=== PATIENT | female | born 1945 | race Asian ===

== ENCOUNTER 2017-01-12 16:20 | Emergency (ER) | payer OTHER ==
[~2017-01-12 16:20] MED LIST: ALEN70TA48 PO; AMLO-511 PO; ASPI-1146 PO; ATOR40TA71 PO; CALC-1009 PO; DULO60CA44 PO; FURO20 PO; GLIP5TAB11 PO; METF500T4 PO; METO100XL PO; QUET100T PO; SITA50 PO
[2017-01-13] MEDS ORDERED: DULO30CA2 PO (11:30)
[2017-01-13] MEDS ORDERED: ASPI81 PO (11:30)
== END 2017-01-12 21:24 | disposition left against medical advice (07) ==
LOC: EMS 16:20
DX: R07.9 Chest pain, unspecified (principal); Z53.21 Procedure and treatment not carried out due to patient leaving prior to being seen by health care provider
CPT/HCPCS: 93005

== ENCOUNTER 2017-01-13 11:17 | Emergency (ER) | payer OTHER ==
[~2017-01-13] VITALS: Ht 142.2 cm; Wt 52.3 kg
[2017-01-13] MEDS ORDERED: ASPI81 PO (11:30)
[2017-01-13] MEDS ORDERED: DULO30CA2 PO (11:30)
[2017-01-13 11:42] LABS: GLUCOSE,POINT OF CARE 244 MG/DL (70-110)
[2017-01-13 12:35] LABS: BASOPHILS # (AUTO) 0.03 K/uL (0.00-0.20); BASOPHILS % (AUTO) 0.5 % (0.0-2.0); EOSINOPHILS # (AUTO) 0.31 K/uL (0.00-0.70); EOSINOPHILS % (AUTO) 5.95 % (1.0-6.0); HEMATOCRIT 37.9 % (36-46); HEMOGLOBIN 12.4 g/dL (12.0-16.0); LYMPHOCYTES # (AUTO) 1.5 K/uL (1.0-4.8); LYMPHOCYTES % (AUTO) 28.8 % (22.0-44.0); MEAN CORPUSCULAR HEMOGLOBIN 30.2 pg (26.0-34.0); MEAN CORPUSCULAR HGB CONC 32.8 G/dL (31.0-37.0); MEAN CORPUSCULAR VOLUME 92 fL (80-100); MONOCYTES # (AUTO) 0.4 K/uL (0.1-1.0); MONOCYTES % (AUTO) 7.8 % (2.0-9.0); PLATELET COUNT (AUTO) 437 K/uL (150-450); RED BLOOD CELL COUNT(AUTO) 4.11 MIL/uL (4.00-5.20); RED CELL DISTRIBUTION WIDTH 13.4 % (11.5-14.5); WHITE BLOOD COUNT (AUTO) 5.2 K/uL (4.5-11.0)
[2017-01-13 12:46] LABS: CALCIUM, TOTAL 9.4 mg/dL (8.8-10.5); CREATININE 1.43 mg/dL (0.60-1.30); POTASSIUM 4.5 mmol/L (3.5-5.1)
[2017-01-13 12:55] LABS: BILIRUBIN,TOTAL 0.4 mg/dL (0.1-1.0); TOTAL PROTEIN, SERUM 8.4 g/dL (6.4-8.2)
[2017-01-13] MEDS ORDERED: DONNATAL/LIDOCAINE/MAALOX 55 ML BOTTLE PO ONE (13:15)
[2017-01-13 15:16] VITALS: BP 125/85
== END 2017-01-13 15:17 | disposition home or self-care (01) ==
LOC: EMS 11:20
DX: R07.89 Other chest pain (principal); I10 Essential (primary) hypertension; E11.9 Type 2 diabetes mellitus without complications; E78.00 Pure hypercholesterolemia, unspecified
CPT/HCPCS: 82962; 93005; 99285

== ENCOUNTER 2017-07-04 15:02 | Emergency (ER) | payer OTHER ==
[~2017-07-04] VITALS: Ht 142.2 cm; Wt 57.0 kg
[~2017-07-04 15:02] MED LIST changes: -ALEN70TA48 PO; -ASPI-1146 PO; +ASPI81 PO; +DULO30CA2 PO; -FURO20 PO
[2017-07-04] MEDS ORDERED: DiphenhydrAMINE HCL 25 MG/10 ML ELIXIR UDCUP PO ONE (17:15)
[2017-07-04 17:47] VITALS: BP 110/66
== END 2017-07-04 17:48 | disposition home or self-care (01) ==
LOC: EMS 15:03
DX: R21 Rash and other nonspecific skin eruption (principal); L29.9 Pruritus, unspecified; M79.646 Pain in unspecified finger(s); M25.552 Pain in left hip; E11.9 Type 2 diabetes mellitus without complications; E78.00 Pure hypercholesterolemia, unspecified; I10 Essential (primary) hypertension; Z87.442 Personal history of urinary calculi; Z90.13 Acquired absence of bilateral breasts and nipples; Z79.82 Long term (current) use of aspirin; Z79.899 Other long term (current) drug therapy
CPT/HCPCS: 82962; 99282

== ENCOUNTER 2017-07-21 09:33 | Emergency (ER) | payer OTHER ==
[~2017-07-21] VITALS: Ht 144.8 cm; Wt 57.2 kg
[2017-07-21 10:37] LABS: GLUCOSE,POINT OF CARE 239 MG/DL (70-110)
[2017-07-21 11:15] VITALS: BP 114/70
== END 2017-07-21 12:14 | disposition home or self-care (01) ==
LOC: EMS 09:46
DX: M25.552 Pain in left hip (principal); M16.0 Bilateral primary osteoarthritis of hip; R79.89 Other specified abnormal findings of blood chemistry; E78.00 Pure hypercholesterolemia, unspecified; E11.9 Type 2 diabetes mellitus without complications; F32.9 Major depressive disorder, single episode, unspecified; G62.9 Polyneuropathy, unspecified; G89.29 Other chronic pain; I10 Essential (primary) hypertension; Z79.82 Long term (current) use of aspirin; Z87.442 Personal history of urinary calculi; Z90.13 Acquired absence of bilateral breasts and nipples
CPT/HCPCS: 73503; 82962; 99284

== ENCOUNTER 2018-02-04 17:30 | Emergency (ER) | payer OTHER, MEDICAID ==
[~2018-02-04] VITALS: Ht 142.2 cm; Wt 56.8 kg
[2018-02-04 18:13] LABS: GLUCOSE,POINT OF CARE 238 MG/DL (70-110)
[2018-02-04] MEDS ORDERED: HydrOXYzine PAMOATE 50 MG CAPSULE PO ONE (18:15)
[2018-02-04 19:31] VITALS: BP 118/75
== END 2018-02-04 19:40 | disposition home or self-care (01) ==
LOC: EDUNIT# 17:30 → EMS 17:31
DX: F41.9 Anxiety disorder, unspecified (principal); F32.9 Major depressive disorder, single episode, unspecified; G47.00 Insomnia, unspecified; I10 Essential (primary) hypertension; E11.9 Type 2 diabetes mellitus without complications; E78.00 Pure hypercholesterolemia, unspecified
CPT/HCPCS: 82962; 99284

== ENCOUNTER 2018-04-06 15:48 | Emergency (ER) | payer OTHER, MEDICAID ==
[~2018-04-06] VITALS: Ht 142.2 cm; Wt 56.8 kg
[~2018-04-06 15:48] MED LIST changes: -METF500T4 PO; +METF500T6 PO
[2018-04-06 16:04] VITALS: BP 143/79
[2018-04-06 16:12] LABS: GLUCOSE,POINT OF CARE 237 MG/DL (70-110)
== END 2018-04-06 17:00 | disposition home or self-care (01) ==
LOC: EMS 15:49
DX: L30.9 Dermatitis, unspecified (principal); F32.9 Major depressive disorder, single episode, unspecified; E11.9 Type 2 diabetes mellitus without complications; E78.00 Pure hypercholesterolemia, unspecified; I10 Essential (primary) hypertension; Z79.82 Long term (current) use of aspirin; Z79.4 Long term (current) use of insulin; Z87.442 Personal history of urinary calculi; Z98.890 Other specified postprocedural states; Z79.899 Other long term (current) drug therapy
CPT/HCPCS: 99283

== ENCOUNTER 2019-02-11 14:19 | Emergency (ER) | payer OTHER ==
[~2019-02-11] VITALS: Ht 149.9 cm; Wt 56.8 kg
[~2019-02-11 14:19] MED LIST changes: -DULO30CA2 PO; +METF-960 PO; -METF500T6 PO
[2019-02-11 14:49] LABS: GLUCOSE,POINT OF CARE 148 MG/DL (70-110)
[2019-02-11] MEDS ORDERED: FURO20 PO (15:00)
[2019-02-11 18:05] VITALS: BP 133/81
== END 2019-02-11 18:24 | disposition home or self-care (01) ==
LOC: EMS 14:19
DX: M16.12 Unilateral primary osteoarthritis, left hip (principal); M79.652 Pain in left thigh; E11.9 Type 2 diabetes mellitus without complications; I10 Essential (primary) hypertension; E78.00 Pure hypercholesterolemia, unspecified; F32.9 Major depressive disorder, single episode, unspecified; Z90.13 Acquired absence of bilateral breasts and nipples; Z79.899 Other long term (current) drug therapy; Z79.82 Long term (current) use of aspirin; Z79.84 Long term (current) use of oral hypoglycemic drugs
CPT/HCPCS: 73503; 73552

== ENCOUNTER 2019-03-02 17:17 | Emergency (ER) | payer MEDICARE, MEDICAID ==
[~2019-03-02] VITALS: Ht 149.9 cm; Wt 56.8 kg
[~2019-03-02 17:17] MED LIST changes: +FURO20 PO
[2019-03-02 17:33] VITALS: BP 144/70
[2019-03-02] MEDS ORDERED: GLIP10 PO (17:40)
[2019-03-02 17:44] LABS: GLUCOSE,POINT OF CARE 232 MG/DL (70-110)
[2019-03-02 17:50] LABS: BASOPHILS % (AUTO) 0.7 % (0.0-2.0); EOSINOPHILS % (AUTO) 1.6 % (1.0-6.0); HEMATOCRIT 35.5 % (36-46); HEMOGLOBIN 11.8 g/dL (12.0-16.0); LYMPHOCYTES # (AUTO) 1.3 K/uL (1.0-4.8); LYMPHOCYTES % (AUTO) 16.3 % (22.0-44.0); MEAN CORPUSCULAR HEMOGLOBIN 30.3 pg (26.0-34.0); MEAN CORPUSCULAR HGB CONC 33.2 G/dL (31.0-37.0); MEAN CORPUSCULAR VOLUME 91 fL (80-100); MONOCYTES % (AUTO) 12.5 % (2.0-9.0); NEUTROPHILS # (AUTO) 5.6 K/uL (1.8-7.7); NEUTROPHILS % (AUTO) 68.9 % (40.0-70.0); PLATELET COUNT (AUTO) 436 K/uL (150-450); RED BLOOD CELL COUNT(AUTO) 3.89 MIL/uL (4.00-5.20); RED CELL DISTRIBUTION WIDTH 13.3 % (11.5-14.5)
[2019-03-02 18:11] LABS: CALCIUM, TOTAL 9.4 mg/dL (8.8-10.5); CREATININE 1.34 mg/dL (0.60-1.30); POTASSIUM 3.5 mmol/L (3.5-5.1)
[2019-03-02 18:17] LABS: ALBUMIN 3.9 g/dL (3.4-5.0); BILIRUBIN,TOTAL 0.3 mg/dL (0.1-1.0); TOTAL PROTEIN, SERUM 8.7 g/dL (6.4-8.2)
[2019-03-02] MEDS ORDERED: BENZONATATE 100 MG CAPSULE PO ONE (18:45)
[2019-03-02] MEDS ORDERED: AZITHROMYCIN 250 MG TABLET PO ONE (18:45)
== END 2019-03-02 19:09 | disposition home or self-care (01) ==
LOC: EMS 17:18
DX: J40 Bronchitis, not specified as acute or chronic (principal); I10 Essential (primary) hypertension; E78.00 Pure hypercholesterolemia, unspecified; E11.9 Type 2 diabetes mellitus without complications; F32.9 Major depressive disorder, single episode, unspecified; Z79.82 Long term (current) use of aspirin; Z79.84 Long term (current) use of oral hypoglycemic drugs; Z79.899 Other long term (current) drug therapy
CPT/HCPCS: 93005

== ENCOUNTER 2019-04-10 10:04 | Emergency (ER) | payer MEDICARE, MEDICAID ==
[~2019-04-10] VITALS: Ht 154.9 cm; Wt 61.4 kg
[~2019-04-10 10:04] MED LIST changes: +GLIP10 PO; -GLIP5TAB11 PO
[2019-04-10 11:05] LABS: GLUCOSE,POINT OF CARE 142 MG/DL (70-110)
[2019-04-10 11:06] VITALS: BP 122/61
== END 2019-04-10 11:09 | disposition home or self-care (01) ==
LOC: EMS 10:07
DX: R21 Rash and other nonspecific skin eruption (principal); E11.9 Type 2 diabetes mellitus without complications; I10 Essential (primary) hypertension; E78.00 Pure hypercholesterolemia, unspecified; F32.9 Major depressive disorder, single episode, unspecified; Z79.82 Long term (current) use of aspirin; Z79.84 Long term (current) use of oral hypoglycemic drugs; Z79.899 Other long term (current) drug therapy

== ENCOUNTER 2019-04-20 15:30 | Emergency (ER) | payer MEDICARE, MEDICAID ==
[~2019-04-20] VITALS: Ht 160 cm; Wt 63.6 kg
[2019-04-20 15:59] LABS: GLUCOSE,POINT OF CARE 178 MG/DL (70-110)
[2019-04-20 16:46] VITALS: BP 124/71
== END 2019-04-20 16:53 | disposition home or self-care (01) ==
LOC: EMS 15:30
DX: L29.8 Other pruritus (principal); E11.9 Type 2 diabetes mellitus without complications; E78.00 Pure hypercholesterolemia, unspecified; I10 Essential (primary) hypertension; Z79.84 Long term (current) use of oral hypoglycemic drugs; Z79.899 Other long term (current) drug therapy

== ENCOUNTER 2019-09-10 18:02 | Emergency (ER) | payer OTHER ==
[~2019-09-10] VITALS: Ht 142.2 cm; Wt 55.9 kg
[~2019-09-10 18:02] MED LIST changes: -AMLO-511 PO; +AMLO5TAB9 PO
[2019-09-10 18:23] LABS: GLUCOSE,POINT OF CARE 191 MG/DL (70-110)
[2019-09-10] MEDS ORDERED: ACETAMINOPHEN/CODEINE 300-30 MG TABLET PO ONE (20:45)
[2019-09-10 22:30] VITALS: BP 116/78
== END 2019-09-11 | disposition home or self-care (01) ==
LOC: EMS 18:03
DX: M25.552 Pain in left hip (principal); E11.40 Type 2 diabetes mellitus with diabetic neuropathy, unspecified; E78.00 Pure hypercholesterolemia, unspecified; I10 Essential (primary) hypertension; F32.9 Major depressive disorder, single episode, unspecified; Z79.899 Other long term (current) drug therapy
CPT/HCPCS: 73503

== ENCOUNTER 2020-06-09 04:54 | Emergency (ER) | payer OTHER ==
[~2020-06-09] VITALS: Ht 142.2 cm; Wt 55.9 kg
[~2020-06-09 04:54] MED LIST changes: +AMLO-257 PO; -AMLO5TAB9 PO; +ASPI-728 PO; -ASPI81 PO; +DULO-8 PO; -DULO60CA44 PO
[2020-06-09] MEDS ORDERED: SODIUM CHLORIDE 0.9% 1,000 ML IV ONE (05:45)
[2020-06-09 05:58] LABS: BASOPHILS % (AUTO) 0.4 % (0.0-2.0); EOSINOPHILS % (AUTO) 0.8 % (1.0-6.0); HEMATOCRIT 32.2 % (36-46); HEMOGLOBIN 10.7 g/dL (12.0-16.0); LYMPHOCYTES # (AUTO) 0.8 K/uL (1.0-4.8); LYMPHOCYTES % (AUTO) 14.8 % (22.0-44.0); MEAN CORPUSCULAR HEMOGLOBIN 30.3 pg (26.0-34.0); MEAN CORPUSCULAR HGB CONC 33.2 G/dL (31.0-37.0); MEAN CORPUSCULAR VOLUME 91 fL (80-100); MONOCYTES # (AUTO) 0.8 K/uL (0.1-1.0); MONOCYTES % (AUTO) 14.7 % (2.0-9.0); NEUTROPHILS # (AUTO) 3.8 K/uL (1.8-7.7); NEUTROPHILS % (AUTO) 69.3 % (40.0-70.0); PLATELET COUNT (AUTO) 328 K/uL (150-450); RED BLOOD CELL COUNT(AUTO) 3.53 MIL/uL (4.00-5.20); RED CELL DISTRIBUTION WIDTH 13.4 % (11.5-14.5)
[2020-06-09 06:15] LABS: ALBUMIN 3.2 g/dL (3.4-5.0); BILIRUBIN,TOTAL 0.4 mg/dL (0.1-1.0); CREATININE 1.75 mg/dL (0.60-1.30); TOTAL PROTEIN, SERUM 7.4 g/dL (6.4-8.2)
[2020-06-09 07:15] VITALS: BP 111/69
[2020-06-09] MEDS ORDERED: POTASSIUM CHLORIDE 20 MEQ ER TABLET PO ONE (07:15)
== END 2020-06-09 07:30 | disposition home or self-care (01) ==
LOC: EMS 04:54
DX: I12.9 Hypertensive chronic kidney disease with stage 1 through stage 4 chronic kidney disease, or unspecified chronic kidney disease (principal); N18.9 Chronic kidney disease, unspecified; E11.22 Type 2 diabetes mellitus with diabetic chronic kidney disease; E87.6 Hypokalemia; D64.9 Anemia, unspecified; F32.9 Major depressive disorder, single episode, unspecified; E78.00 Pure hypercholesterolemia, unspecified; Z79.84 Long term (current) use of oral hypoglycemic drugs; Z79.82 Long term (current) use of aspirin; Z79.899 Other long term (current) drug therapy
CPT/HCPCS: 36415; 74019; 80053; 82962; 83690; 85025; 96360; 96361; 99284; J7030

== ENCOUNTER 2021-04-26 11:07 | Emergency (ER) | payer OTHER ==
[~2021-04-26] VITALS: Ht 149.9 cm; Wt 45.5 kg
[~2021-04-26 11:07] MED LIST changes: +ASPI-1450 PO; -ASPI-728 PO; +METO-327 PO; -METO100XL PO
[2021-04-26 11:57] VITALS: BP 124/84
== END 2021-04-26 11:59 | disposition home or self-care (01) ==
LOC: EMS 11:08
DX: F32.9 Major depressive disorder, single episode, unspecified (principal); E11.9 Type 2 diabetes mellitus without complications; E78.00 Pure hypercholesterolemia, unspecified; I10 Essential (primary) hypertension; Z76.0 Encounter for issue of repeat prescription; Z79.84 Long term (current) use of oral hypoglycemic drugs; Z79.82 Long term (current) use of aspirin; Z79.899 Other long term (current) drug therapy
CPT/HCPCS: 82962; 99281; 99282

== ENCOUNTER 2023-01-29 14:24 | Emergency (ER) | payer OTHER ==
[~2023-01-29] VITALS: Ht 142.2 cm; Wt 59.1 kg
[~2023-01-29 14:24] MED LIST changes: +DULO-113 PO; -DULO-8 PO; -GLIP10 PO; +GLIP10TA10 PO; +METF-1211 PO; -METF-960 PO
[2023-01-29] MEDS ORDERED: LISI20TA24 PO (14:32)
[2023-01-29 14:57] LABS: EOSINOPHILS % (AUTO) 10.5 % (1.0-6.0); LYMPHOCYTES % (AUTO) 26.9 % (22.0-44.0); MEAN CORPUSCULAR HEMOGLOBIN 30.3 pg (26.0-34.0); MEAN CORPUSCULAR HGB CONC 33.3 G/dL (31.0-37.0); MEAN CORPUSCULAR VOLUME 91 fL (80-100); MONOCYTES # (AUTO) 0.6 K/uL (0.1-1.0); MONOCYTES % (AUTO) 8.7 % (2.0-9.0); NEUTROPHILS # (AUTO) 3.9 K/uL (1.8-7.7); NEUTROPHILS % (AUTO) 52.9 % (40.0-70.0); PLATELET COUNT (AUTO) 372 K/uL (150-450); RED BLOOD CELL COUNT(AUTO) 3.96 MIL/uL (4.00-5.20); RED CELL DISTRIBUTION WIDTH 13.6 % (11.5-14.5)
[2023-01-29 15:12] LABS: CALCIUM, TOTAL 9.4 mg/dL (8.8-10.5); CREATININE 1.42 mg/dL (0.60-1.30); POTASSIUM 3.9 mmol/L (3.5-5.1)
[2023-01-29 15:19] LABS: ALBUMIN 4.1 g/dL (3.4-5.0); BILIRUBIN,TOTAL 0.4 mg/dL (0.1-1.0); TOTAL PROTEIN, SERUM 8.6 g/dL (6.4-8.2)
[2023-01-29 20:50] VITALS: BP 137/71
== END 2023-01-29 21:11 | disposition home or self-care (01) ==
LOC: EMS 14:34
DX: R14.0 Abdominal distension (gaseous) (principal); E11.22 Type 2 diabetes mellitus with diabetic chronic kidney disease; R60.1 Generalized edema; F32.A Depression, unspecified; E11.9 Type 2 diabetes mellitus without complications; E78.00 Pure hypercholesterolemia, unspecified; Z98.890 Other specified postprocedural states
CPT/HCPCS: 74022; 76700; 80053; 82962; 83880; 85025; 99285

== ENCOUNTER 2023-05-31 12:35 | Emergency (ER) | payer OTHER ==
[~2023-05-31] VITALS: Ht 154.9 cm; Wt 61.4 kg
[~2023-05-31 12:35] MED LIST changes: +LISI20TA24 PO
[2023-05-31 13:06] VITALS: BP 134/76; PULSE 86; RESP 18; TEMP 98.6
[2023-05-31] MEDS ORDERED: DIPH25TA20 PO (13:48)
[2023-05-31] MEDS ORDERED: PERM60CR19 TP (13:48)
== END 2023-05-31 13:53 | disposition home or self-care (01) ==
LOC: EMS 12:39
DX: L30.9 Dermatitis, unspecified (principal); F32.A Depression, unspecified; E78.00 Pure hypercholesterolemia, unspecified; I10 Essential (primary) hypertension; E11.40 Type 2 diabetes mellitus with diabetic neuropathy, unspecified; Z90.13 Acquired absence of bilateral breasts and nipples; Z98.890 Other specified postprocedural states
CPT/HCPCS: 82962; 99281; 99282

== ENCOUNTER 2023-07-01 16:23 | Emergency (ER) | payer OTHER ==
[~2023-07-01] VITALS: Ht 154.9 cm; Wt 54.5 kg
[~2023-07-01 16:23] MED LIST changes: +DIPH25TA20 PO; +PERM60CR19 TP
[2023-07-01 16:33] VITALS: TEMP 97.9
[2023-07-01 17:25] LABS: BASOPHILS % (AUTO) 1.3 % (0.0-2.0); EOSINOPHILS % (AUTO) 2.6 % (1.0-6.0); HEMATOCRIT 41.3 % (36-46); HEMOGLOBIN 13.7 g/dL (12.0-16.0); LYMPHOCYTES # (AUTO) 2.1 K/uL (1.0-4.8); LYMPHOCYTES % (AUTO) 31.2 % (22.0-44.0); MEAN CORPUSCULAR HEMOGLOBIN 30.3 pg (26.0-34.0); MEAN CORPUSCULAR HGB CONC 33.2 G/dL (31.0-37.0); MEAN CORPUSCULAR VOLUME 91 fL (80-100); MONOCYTES # (AUTO) 0.5 K/uL (0.1-1.0); MONOCYTES % (AUTO) 7.3 % (2.0-9.0); NEUTROPHILS # (AUTO) 3.9 K/uL (1.8-7.7); NEUTROPHILS % (AUTO) 57.6 % (40.0-70.0); PLATELET COUNT (AUTO) 355 K/uL (150-450); RED BLOOD CELL COUNT(AUTO) 4.53 MIL/uL (4.00-5.20); RED CELL DISTRIBUTION WIDTH 13.6 % (11.5-14.5); WHITE BLOOD COUNT (AUTO) 6.7 K/uL (4.5-11.0)
[2023-07-01 17:33] LABS: CALCIUM, TOTAL 9.2 mg/dL (8.8-10.5); CREATININE 1.3 mg/dL (0.60-1.30); POTASSIUM 3.4 mmol/L (3.5-5.1)
[2023-07-01 17:40] LABS: TROPONIN I-HIGH SENSITIVITY 7 ng/L (<51)
[2023-07-01 17:56] LABS: ALBUMIN 4.1 g/dL (3.4-5.0); BILIRUBIN,TOTAL 0.6 mg/dL (0.1-1.0); TOTAL PROTEIN, SERUM 9.1 g/dL (6.4-8.2)
[2023-07-01 17:58] LABS: COVID AG,FIA SOURCE NASOPHARYNGEAL
[2023-07-01 18:06] LABS: APPEARANCE,URINE CLEAR (CLEAR); BILIRUBIN,URINE NEGATIVE (NEGATIVE); COLOR,URINE LIGHT YELLOW (YELLOW); GLUCOSE, URINE (UA) >=1000 mg/dL (NEGATIVE); KETONES,URINE NEGATIVE (NEGATIVE); LEUKOCYTE ESTERASE ,URINE NEGATIVE (NEGATIVE); NITRATE,URINE NEGATIVE (NEGATIVE); OCCULT BLOOD,URINE NEGATIVE (NEGATIVE); PH,URINE 6.5 (5.0-8.0); PROTEIN,URINE TRACE mg/dL (NEGATIVE); SPECIFIC GRAVITIY, URINE 1.019 (1.003-1.030); UROBILINOGEN,URINE <=1.0 mg/dL (<=1.0)
[2023-07-01 18:21] LABS: BACTERIA,URINE None Seen /HPF (None Seen); RBC,URINE None Seen /HPF (0-2); WBC,URINE 0-2 /HPF (0-5)
[2023-07-01 18:23] LABS: SARS-COV2 (COVID) ANTIGEN,FIA Negative (Negative)
[2023-07-01 18:24] LABS: INFLUENZA TYPE A NEGATIVE FOR TYPE A (NEGATIVE); INFLUENZA TYPE B NEGATIVE FOR TYPE B (NEGATIVE)
[2023-07-01 19:19] VITALS: BP 182/93; PULSE 95; RESP 20
[2023-07-01 19:26] LABS: GLUCOMETER DEV NAME(LOC) ER.6; GLUCOSE,POINT OF CARE 213 MG/DL (70-110)
== END 2023-07-01 19:26 | disposition home or self-care (01) ==
LOC: EMS 16:24
DX: R53.1 Weakness (principal); R53.83 Other fatigue; F32.A Depression, unspecified; E78.00 Pure hypercholesterolemia, unspecified; I10 Essential (primary) hypertension; E11.40 Type 2 diabetes mellitus with diabetic neuropathy, unspecified; Z90.13 Acquired absence of bilateral breasts and nipples; Z20.822 Contact with and (suspected) exposure to COVID-19
CPT/HCPCS: 71045; 80053; 81001; 81003; 82550; 82962; 83880; 84484; 85025; 87804; 93005; 99285; 36415-L1; 36415-TC

== ENCOUNTER 2023-09-16 13:53 | Emergency (ER) | payer OTHER ==
[~2023-09-16] VITALS: Ht 142.2 cm; Wt 55.5 kg
[2023-09-16 14:05] VITALS: TEMP 98
[2023-09-16 14:12] VITALS: BP 140/73; PULSE 83; RESP 16
[2023-09-16] MEDS: ONDANSETRON HCL 4 MG TABLET PO ONE (15:01)
[2023-09-16] MEDS: ACETAMINOPHEN 500 MG TABLET PO ONE (15:01)
[2023-09-16] MEDS: MECLIZINE HCL 25 MG TABLET PO ONE (15:02)
[2023-09-16 15:21] LABS: BASOPHILS % (AUTO) 0.9 % (0.0-2.0); EOSINOPHILS % (AUTO) 1.9 % (1.0-6.0); HEMATOCRIT 37.2 % (36-46); HEMOGLOBIN 12.5 g/dL (12.0-16.0); LYMPHOCYTES # (AUTO) 1.8 K/uL (1.0-4.8); MEAN CORPUSCULAR HEMOGLOBIN 30.7 pg (26.0-34.0); MEAN CORPUSCULAR HGB CONC 33.6 G/dL (31.0-37.0); MEAN CORPUSCULAR VOLUME 91 fL (80-100); MONOCYTES # (AUTO) 0.4 K/uL (0.1-1.0); MONOCYTES % (AUTO) 6.5 % (2.0-9.0); NEUTROPHILS # (AUTO) 4.4 K/uL (1.8-7.7); NEUTROPHILS % (AUTO) 64.7 % (40.0-70.0); PLATELET COUNT (AUTO) 360 K/uL (150-450); RED BLOOD CELL COUNT(AUTO) 4.08 MIL/uL (4.00-5.20); WHITE BLOOD COUNT (AUTO) 6.8 K/uL (4.5-11.0)
[2023-09-16 15:39] LABS: TROPONIN I-HIGH SENSITIVITY 9 ng/L (<51)
[2023-09-16 16:15] LABS: CALCIUM, TOTAL 9.1 mg/dL (8.8-10.5); CREATININE 1.51 mg/dL (0.60-1.30); POTASSIUM 3.7 mmol/L (3.5-5.1)
[2023-09-16 16:21] LABS: BILIRUBIN,TOTAL 0.4 mg/dL (0.1-1.0); TOTAL PROTEIN, SERUM 8.7 g/dL (6.4-8.2)
[2023-09-16] MEDS ORDERED: ONDA-104 PO (17:06)
[2023-09-16] MEDS ORDERED: ACET-2247 PO (17:06)
[2023-09-16] MEDS ORDERED: MECL-134 PO (17:06)
== END 2023-09-16 17:17 | disposition home or self-care (01) ==
LOC: EMS 13:53
DX: E11.65 Type 2 diabetes mellitus with hyperglycemia (principal); E11.40 Type 2 diabetes mellitus with diabetic neuropathy, unspecified; R42 Dizziness and giddiness; F32.A Depression, unspecified; E78.00 Pure hypercholesterolemia, unspecified; I10 Essential (primary) hypertension; Z90.13 Acquired absence of bilateral breasts and nipples
CPT/HCPCS: 99284; 80053; 82962; 84484; 85025; 36415; 93005; Q0162

== ENCOUNTER 2024-05-05 10:33 | Emergency (ER) | payer MEDICARE, OTHER ==
[~2024-05-05] VITALS: Ht 142.2 cm; Wt 55.0 kg
[~2024-05-05 10:33] MED LIST changes: -AMLO-257 PO; +AMLO10TA55 PO; -ASPI-1450 PO; -CALC-1009 PO; +CEPH-558 PO; -DIPH25TA20 PO; -DULO-113 PO; +EMPA25TA3 PO; -FURO20 PO; -GLIP10TA10 PO; +LINA5TAB PO; -LISI20TA24 PO; -METF-1211 PO; -METO-327 PO; -PERM60CR19 TP; -QUET100T PO; +RISP0.5T80 PO; -SITA50 PO
[2024-05-05 10:39] VITALS: BP 104/59; PULSE 82; RESP 16; TEMP 98.2
[2024-05-05 11:04] LABS: APPEARANCE,URINE CLEAR (CLEAR); BILIRUBIN,URINE NEGATIVE (NEGATIVE); COLOR,URINE LIGHT YELLOW (YELLOW); GLUCOSE, URINE (UA) >=1000 mg/dL (NEGATIVE); KETONES,URINE NEGATIVE (NEGATIVE); LEUKOCYTE ESTERASE ,URINE MODERATE (NEGATIVE); NITRATE,URINE NEGATIVE (NEGATIVE); OCCULT BLOOD,URINE TRACE (NEGATIVE); PH,URINE 5.5 (5.0-8.0); PROTEIN,URINE TRACE mg/dL (NEGATIVE); SPECIFIC GRAVITIY, URINE 1.027 (1.003-1.030); UROBILINOGEN,URINE <=1.0 mg/dL (<=1.0)
[2024-05-05 11:35] LABS: BACTERIA,URINE None Seen /HPF (None Seen); RBC,URINE None Seen /HPF (0-2); SQUAMOUS EPITHELIAL CELL,UR Few /LPF (None Seen)
[2024-05-05] MEDS ORDERED: CEPH-558 PO (12:32)
[2024-05-05] MEDS: CefTRIAXone SODIUM 1 GM/VIAL IM ONE (12:46)
[2024-05-05] MEDS: LIDOCAINE/PF 1% 2 ML VIAL IM ONE (12:46)
== END 2024-05-05 13:47 | disposition home or self-care (01) ==
LOC: EMS 10:33
DX: N39.0 Urinary tract infection, site not specified (principal); E78.00 Pure hypercholesterolemia, unspecified; E11.9 Type 2 diabetes mellitus without complications; I10 Essential (primary) hypertension; F32.A Depression, unspecified; Z87.442 Personal history of urinary calculi; Z85.9 Personal history of malignant neoplasm, unspecified
CPT/HCPCS: 99283; 81001; 87086; 87186; 96372; J0696; J3490

== ENCOUNTER 2024-07-29 14:12 | Emergency (ER) | payer MEDICARE, OTHER ==
[~2024-07-29] VITALS: Ht 149.9 cm; Wt 57.7 kg
[2024-07-29] MEDS ORDERED: LOSA-381 PO (14:42)
[2024-07-29] MEDS ORDERED: DULO20CA71 PO (14:42)
[2024-07-29] MEDS ORDERED: MULT-1336 PO (14:42)
[2024-07-29] MEDS ORDERED: ALEN70TA65 PO (14:42)
[2024-07-29] MEDS ORDERED: ACET-66 PO (14:42)
[2024-07-29] MEDS ORDERED: METF-1211 PO (14:42)
[2024-07-29] MEDS ORDERED: QUET100T34 PO (14:42)
[2024-07-29] MEDS ORDERED: ASPI-1444 PO (14:42)
[2024-07-29 16:57] LABS: BASOPHILS % (AUTO) 1.1 % (0.0-2.0); EOSINOPHILS % (AUTO) 2.2 % (1.0-6.0); HEMATOCRIT 42.9 % (36-46); HEMOGLOBIN 13.9 g/dL (12.0-16.0); LYMPHOCYTES # (AUTO) 1.7 K/uL (1.0-4.8); LYMPHOCYTES % (AUTO) 27.6 % (22.0-44.0); MEAN CORPUSCULAR HEMOGLOBIN 29.9 pg (26.0-34.0); MEAN CORPUSCULAR HGB CONC 32.3 G/dL (31.0-37.0); MEAN CORPUSCULAR VOLUME 93 fL (80-100); MONOCYTES # (AUTO) 0.8 K/uL (0.1-1.0); MONOCYTES % (AUTO) 13.6 % (2.0-9.0); NEUTROPHILS # (AUTO) 3.4 K/uL (1.8-7.7); NEUTROPHILS % (AUTO) 55.5 % (40.0-70.0); PLATELET COUNT (AUTO) 360 K/uL (150-450); RED BLOOD CELL COUNT(AUTO) 4.64 MIL/uL (4.00-5.20); WHITE BLOOD COUNT (AUTO) 6.2 K/uL (4.5-11.0)
[2024-07-29 17:19] LABS: ALCOHOL, BLOOD (SERUM) < 3 mg/dL (0-10)
[2024-07-29 17:31] LABS: ANION GAP 12 mmol/L (8-16); CALCIUM, TOTAL 8.9 mg/dL (8.8-10.5); CARBON DIOXIDE 26 mmol/L (22-29); CHLORIDE 103 mmol/L (98-107); CREATININE 1.35 mg/dL (0.60-1.30); GLOMERULAR FILTR. RATE CALC 38 mL/min (>60); GLUCOSE,RANDOM 110 mg/dL (70-110); POTASSIUM 3.9 mmol/L (3.5-5.1); SODIUM SERUM 141 mmol/L (136-145); UREA NITROGEN, BLOOD 22 mg/dL (7-18)
[2024-07-29 18:44] VITALS: BP 141/83; PULSE 77; RESP 18; TEMP 98.3; O2SAT 98
[2024-07-29 22:10] LABS: COVID AG,FIA SOURCE NASAL SWAB
[2024-07-29 22:15] LABS: ALCOHOL, URINE DRUG SCREEN NEGATIVE (NEGATIVE); AMPHET/METH SCREEN,URINE NEGATIVE (NEGATIVE); BARBITURATE SCREEN, URINE NEGATIVE (NEGATIVE); BENZODIAZEPINES SCREEN,URINE NEGATIVE (NEGATIVE); CANNABINOID SCREEN,URINE NEGATIVE (NEGATIVE); COCAINE SCREEN,URINE NEGATIVE (NEGATIVE); METHADONE SCREEN, URINE NEGATIVE (NEGATIVE); OPIATE SCREEN,URINE NEGATIVE (NEGATIVE); PHENCYCLIDINE SCREEN,URINE NEGATIVE (NEGATIVE)
[2024-07-29 22:29] LABS: SARS-COV2 (COVID) ANTIGEN,FIA Negative (Negative)
[2024-07-29] MEDS: QUEtiapine FUMARATE 100 MG TABLET PO ONE (22:31)
== END 2024-07-30 00:22 | disposition home or self-care (01) ==
LOC: EMS 14:12
DX: G47.00 Insomnia, unspecified (principal); F32.A Depression, unspecified; R53.83 Other fatigue; E11.9 Type 2 diabetes mellitus without complications; E78.00 Pure hypercholesterolemia, unspecified; I10 Essential (primary) hypertension; Z87.442 Personal history of urinary calculi; Z85.3 Personal history of malignant neoplasm of breast; Z79.82 Long term (current) use of aspirin; Z79.899 Other long term (current) drug therapy; Z20.822 Contact with and (suspected) exposure to COVID-19
CPT/HCPCS: 80048; 80307; 82962; 84443; 85025; 99284; G0480

== ENCOUNTER 2024-08-21 10:48 | Emergency (ER) | payer MEDICARE, OTHER ==
[~2024-08-21] VITALS: Ht 152.4 cm; Wt 56.8 kg
[~2024-08-21 10:48] MED LIST changes: +ACET-66 PO; +ALEN70TA65 PO; +ASPI-1444 PO; -ATOR40TA71 PO; -CEPH-558 PO; +DULO20CA71 PO; +LOSA-381 PO; +METF-1211 PO; +MULT-1336 PO; +QUET100T34 PO; -RISP0.5T80 PO
[2024-08-21 11:01] VITALS: TEMP 97.8
[2024-08-21 11:29] LABS: BASOPHILS % (AUTO) 0.8 % (0.0-2.0); EOSINOPHILS % (AUTO) 0.9 % (1.0-6.0); HEMATOCRIT 39.5 % (36-46); HEMOGLOBIN 12.9 g/dL (12.0-16.0); LYMPHOCYTES % (AUTO) 16.5 % (22.0-44.0); MEAN CORPUSCULAR HEMOGLOBIN 30.2 pg (26.0-34.0); MEAN CORPUSCULAR HGB CONC 32.6 G/dL (31.0-37.0); MEAN CORPUSCULAR VOLUME 93 fL (80-100); MONOCYTES # (AUTO) 0.4 K/uL (0.1-1.0); NEUTROPHILS # (AUTO) 4.7 K/uL (1.8-7.7); NEUTROPHILS % (AUTO) 75.8 % (40.0-70.0); PLATELET COUNT (AUTO) 382 K/uL (150-450); RED BLOOD CELL COUNT(AUTO) 4.26 MIL/uL (4.00-5.20); RED CELL DISTRIBUTION WIDTH 13.8 % (11.5-14.5); WHITE BLOOD COUNT (AUTO) 6.2 K/uL (4.5-11.0)
[2024-08-21 11:46] LABS: CALCIUM, TOTAL 8.4 mg/dL (8.8-10.5); CREATININE 1.18 mg/dL (0.60-1.30); POTASSIUM 3.7 mmol/L (3.5-5.1)
[2024-08-21 11:48] LABS: PROTHROMBIN TIME 10.8 SEC (9.4-11.6)
[2024-08-21 11:53] LABS: ALBUMIN 3.3 g/dL (3.4-5.0); BILIRUBIN,TOTAL 0.4 mg/dL (0.1-1.0); TOTAL PROTEIN, SERUM 7.6 g/dL (6.4-8.2)
[2024-08-21 11:58] LABS: APPEARANCE,URINE CLEAR (CLEAR); BILIRUBIN,URINE NEGATIVE (NEGATIVE); COLOR,URINE LIGHT YELLOW (YELLOW); GLUCOSE, URINE (UA) 300-500 mg/dL (NEGATIVE); KETONES,URINE TRACE mg/dL (NEGATIVE); LEUKOCYTE ESTERASE ,URINE NEGATIVE (NEGATIVE); NITRATE,URINE NEGATIVE (NEGATIVE); OCCULT BLOOD,URINE NEGATIVE (NEGATIVE); PROTEIN,URINE 30-70 mg/dL (NEGATIVE); UROBILINOGEN,URINE <=1.0 mg/dL (<=1.0)
[2024-08-21 12:02] LABS: TROPONIN I-HIGH SENSITIVITY Less Than 4 ng/L (<51)
[2024-08-21 12:07] LABS: BACTERIA,URINE None Seen /HPF (None Seen); RBC,URINE None Seen /HPF (0-2); WBC,URINE 0-2 /HPF (0-5)
[2024-08-21 12:08] LABS: FINE GRANULAR CASTS,URINE 0-2 /LPF (None Seen)
[2024-08-21 12:49] VITALS: BP 142/52; PULSE 83; RESP 20; O2SAT 96
[2024-08-21] MEDS: QUEtiapine FUMARATE 25 MG TABLET PO ONE (13:02)
[2024-08-21] MEDS: LORazepam 1 MG TABLET PO ONE (13:02)
[2024-08-22 04:01] LABS: GLUCOMETER DEV NAME(LOC) ERT.6; GLUCOSE,POINT OF CARE 222 MG/DL (70-110)
== END 2024-08-21 13:40 | disposition home or self-care (01) ==
LOC: EMS 10:48
DX: R53.83 Other fatigue (principal); R53.1 Weakness; F41.9 Anxiety disorder, unspecified; E11.9 Type 2 diabetes mellitus without complications; I10 Essential (primary) hypertension; E87.6 Hypokalemia; F32.A Depression, unspecified; E78.00 Pure hypercholesterolemia, unspecified; E87.8 Other disorders of electrolyte and fluid balance, not elsewhere classified; Z79.82 Long term (current) use of aspirin; Z79.84 Long term (current) use of oral hypoglycemic drugs; Z87.442 Personal history of urinary calculi; Z79.899 Other long term (current) drug therapy
CPT/HCPCS: 71045; 80053; 81001; 82962; 83880; 84484; 85025; 85610; 85730; 93005; 99285; 36415-L1; 36415-TC

== ENCOUNTER 2024-11-23 12:22 | Emergency (ER) | payer MEDICARE, OTHER ==
[~2024-11-23] VITALS: Ht 142.2 cm; Wt 55.9 kg
[~2024-11-23 12:22] MED LIST changes: -METF-1211 PO
[2024-11-23 12:36] VITALS: BP 116/77; PULSE 70; RESP 16; TEMP 98; O2SAT 99
[2024-11-23 13:37] LABS: BASOPHILS % (AUTO) 1.5 % (0.0-2.0); HEMOGLOBIN 13.9 g/dL (12.0-16.0); LYMPHOCYTES # (AUTO) 1.5 K/uL (1.0-4.8); MEAN CORPUSCULAR HEMOGLOBIN 30.7 pg (26.0-34.0); MEAN CORPUSCULAR HGB CONC 33.1 G/dL (31.0-37.0); MEAN CORPUSCULAR VOLUME 93 fL (80-100); MONOCYTES # (AUTO) 0.4 K/uL (0.1-1.0); MONOCYTES % (AUTO) 7.7 % (2.0-9.0); NEUTROPHILS # (AUTO) 3.2 K/uL (1.8-7.7); NEUTROPHILS % (AUTO) 59.8 % (40.0-70.0); PLATELET COUNT (AUTO) 347 K/uL (150-450); RED BLOOD CELL COUNT(AUTO) 4.53 MIL/uL (4.00-5.20); RED CELL DISTRIBUTION WIDTH 13.4 % (11.5-14.5); WHITE BLOOD COUNT (AUTO) 5.4 K/uL (4.5-11.0)
[2024-11-23 13:46] LABS: CALCIUM, TOTAL 8.8 mg/dL (8.8-10.5); CREATININE 1.11 mg/dL (0.60-1.30); POTASSIUM 3.8 mmol/L (3.5-5.1)
[2024-11-23] MEDS: ACETAMINOPHEN 325 MG TABLET PO ONE (13:47)
[2024-11-23] MEDS ORDERED: ACET-2247 PO (13:58)
== END 2024-11-23 14:26 | disposition home or self-care (01) ==
LOC: EMS 13:05
DX: G56.01 Carpal tunnel syndrome, right upper limb (principal); F32.A Depression, unspecified; E11.41 Type 2 diabetes mellitus with diabetic mononeuropathy; E78.00 Pure hypercholesterolemia, unspecified; I10 Essential (primary) hypertension; Z79.82 Long term (current) use of aspirin; Z79.84 Long term (current) use of oral hypoglycemic drugs; Z79.899 Other long term (current) drug therapy; Z87.442 Personal history of urinary calculi; Z98.890 Other specified postprocedural states
CPT/HCPCS: 80048; 82962; 85025; 99283

== ENCOUNTER 2025-02-07 16:31 | Emergency (ER) | payer OTHER ==
[~2025-02-07] VITALS: Ht 142.2 cm; Wt 55.9 kg
[~2025-02-07 16:31] MED LIST changes: +ACET-2247 PO; +DULO20CA70 PO; -DULO20CA71 PO
[2025-02-07 17:00] LABS: GLUCOMETER DEV NAME(LOC) ERT.6; GLUCOSE,POINT OF CARE 231 MG/DL (70-110)
[2025-02-07 20:30] LABS: APPEARANCE,URINE CLEAR (CLEAR); BILIRUBIN,URINE NEGATIVE (NEGATIVE); COLOR,URINE COLORLESS (YELLOW); GLUCOSE, URINE (UA) >=1000 mg/dL (NEGATIVE); KETONES,URINE NEGATIVE (NEGATIVE); LEUKOCYTE ESTERASE ,URINE LARGE (NEGATIVE); NITRATE,URINE NEGATIVE (NEGATIVE); OCCULT BLOOD,URINE NEGATIVE (NEGATIVE); PH,URINE 7.5 (5.0-8.0); PROTEIN,URINE 30-70 mg/dL (NEGATIVE); SPECIFIC GRAVITIY, URINE 1.012 (1.003-1.030); UROBILINOGEN,URINE <=1.0 mg/dL (<=1.0)
[2025-02-07 20:46] LABS: BACTERIA,URINE Rare /HPF (None Seen); RBC,URINE None Seen /HPF (0-2); SQUAMOUS EPITHELIAL CELL,UR Rare /LPF (None Seen)
[2025-02-07] MEDS ORDERED: CEPH-556 PO (21:33)
[2025-02-07] MEDS: CEPHALEXIN MONOHYDRATE 500 MG CAPSULE PO ONE (21:45)
[2025-02-07 21:58] VITALS: BP 119/65; PULSE 79; RESP 18; TEMP 97.9; O2SAT 98
== END 2025-02-07 22:20 | disposition home or self-care (01) ==
LOC: EMS 16:31
DX: N39.0 Urinary tract infection, site not specified (principal); I10 Essential (primary) hypertension; F32.A Depression, unspecified; E11.9 Type 2 diabetes mellitus without complications; E78.00 Pure hypercholesterolemia, unspecified; Z79.82 Long term (current) use of aspirin; Z79.84 Long term (current) use of oral hypoglycemic drugs; Z79.899 Other long term (current) drug therapy
CPT/HCPCS: 81001; 82962; 87077; 87086; 99283

== ENCOUNTER 2025-07-16 11:34 | Emergency (ER) | payer OTHER ==
[~2025-07-16] VITALS: Ht 142.2 cm; Wt 77.3 kg
[~2025-07-16 11:34] MED LIST changes: -ACET-2247 PO; +DULO20CA23 PO; -DULO20CA70 PO; +FLUT16SP NASAL; +MECL-302 PO
[2025-07-16 11:43] VITALS: TEMP 97.9
[2025-07-16 12:06] LABS: GLUCOMETER DEV NAME(LOC) ER.7; GLUCOSE,POINT OF CARE 192 MG/DL (70-110)
[2025-07-16 12:40] VITALS: BP 111/60; PULSE 75; RESP 18; O2SAT 97
[2025-07-16 12:54] LABS: PLATELET COUNT (AUTO) 358 K/uL (150-450); RED BLOOD CELL COUNT(AUTO) 4.70 MIL/uL (4.00-5.20); RED CELL DISTRIBUTION WIDTH 13.6 % (11.5-14.5); WHITE BLOOD COUNT (AUTO) 6.6 K/uL (4.5-11.0)
[2025-07-16 13:03] LABS: CALCIUM, TOTAL 9.6 mg/dL (8.8-10.5); CREATININE 1.19 mg/dL (0.60-1.30); GLOMERULAR FILTR. RATE CALC 44.0 mL/min (>60); GLUCOSE,RANDOM 142.0 mg/dL (70-110); SODIUM SERUM 137.0 mmol/L (136-145); UREA NITROGEN, BLOOD 24.0 mg/dL (7-18)
[2025-07-16 13:29] LABS: COVID AG,FIA SOURCE NASAL SWAB
[2025-07-16] MEDS ORDERED: QUET100T34 PO (13:30)
[2025-07-16 13:46] LABS: APPEARANCE,URINE CLEAR (CLEAR); GLUCOSE, URINE (UA) >=1000 mg/dL (NEGATIVE); LEUKOCYTE ESTERASE ,URINE MODERATE (NEGATIVE); NITRATE,URINE NEGATIVE (NEGATIVE); OCCULT BLOOD,URINE NEGATIVE (NEGATIVE); PH,URINE DRUG SCREEN 5.5 (5.0-8.0); SPECIFIC GRAVITIY, URINE 1.008 (1.003-1.030)
[2025-07-16 13:52] LABS: ALCOHOL, URINE DRUG SCREEN NEGATIVE (NEGATIVE); AMPHET/METH SCREEN,URINE NEGATIVE (NEGATIVE); BARBITURATE SCREEN, URINE NEGATIVE (NEGATIVE); CANNABINOID SCREEN,URINE NEGATIVE (NEGATIVE); COCAINE SCREEN,URINE NEGATIVE (NEGATIVE); METHADONE SCREEN, URINE NEGATIVE (NEGATIVE)
[2025-07-16 13:52] LABS: SARS-COV2 (COVID) ANTIGEN,FIA Negative (Negative)
[2025-07-16 13:53] LABS: SQUAMOUS EPITHELIAL CELL,UR Few /LPF (None Seen)
== END 2025-07-16 13:51 | disposition home or self-care (01) ==
LOC: EMS 11:35
DX: F32.9 Major depressive disorder, single episode, unspecified (principal); E11.22 Type 2 diabetes mellitus with diabetic chronic kidney disease; E11.40 Type 2 diabetes mellitus with diabetic neuropathy, unspecified; E11.65 Type 2 diabetes mellitus with hyperglycemia; I12.9 Hypertensive chronic kidney disease with stage 1 through stage 4 chronic kidney disease, or unspecified chronic kidney disease; N18.9 Chronic kidney disease, unspecified; E78.00 Pure hypercholesterolemia, unspecified; Z76.0 Encounter for issue of repeat prescription; Z79.82 Long term (current) use of aspirin; Z79.899 Other long term (current) drug therapy; Z87.442 Personal history of urinary calculi; Z90.13 Acquired absence of bilateral breasts and nipples; Z98.890 Other specified postprocedural states; Z20.822 Contact with and (suspected) exposure to COVID-19
CPT/HCPCS: 99284; 87426; 80048; 81001; 82962; 85025; 87086; 36415; 80307; G0480

== ENCOUNTER 2025-07-20 08:34 | Inpatient (IN) | payer OTHER, MEDICAID ==
[~2025-07-20] VITALS: Ht 139.7 cm; Wt 51.8 kg
[2025-07-20 09:48] LABS: APPEARANCE,URINE CLEAR (CLEAR); GLUCOSE, URINE (UA) >=1000 mg/dL (NEGATIVE); LEUKOCYTE ESTERASE ,URINE NEGATIVE (NEGATIVE); NITRATE,URINE NEGATIVE (NEGATIVE); OCCULT BLOOD,URINE NEGATIVE (NEGATIVE); SPECIFIC GRAVITIY, URINE 1.025 (1.003-1.030)
[2025-07-20 09:51] LABS: PLATELET COUNT (AUTO) 359 K/uL (150-450); RED BLOOD CELL COUNT(AUTO) 4.97 MIL/uL (4.00-5.20); RED CELL DISTRIBUTION WIDTH 13.6 % (11.5-14.5); WHITE BLOOD COUNT (AUTO) 7.3 K/uL (4.5-11.0)
[2025-07-20 09:57] LABS: CALCIUM, TOTAL 9.3 mg/dL (8.8-10.5); CREATININE 0.99 mg/dL (0.60-1.30); GLOMERULAR FILTR. RATE CALC 54.0 mL/min (>60); GLUCOSE,RANDOM 156.0 mg/dL (70-110); SODIUM SERUM 140.0 mmol/L (136-145); UREA NITROGEN, BLOOD 16.0 mg/dL (7-18)
[2025-07-20 10:02] LABS: ALCOHOL, URINE DRUG SCREEN NEGATIVE (NEGATIVE); AMPHET/METH SCREEN,URINE NEGATIVE (NEGATIVE); BARBITURATE SCREEN, URINE NEGATIVE (NEGATIVE); CANNABINOID SCREEN,URINE NEGATIVE (NEGATIVE); COCAINE SCREEN,URINE NEGATIVE (NEGATIVE); METHADONE SCREEN, URINE NEGATIVE (NEGATIVE)
[2025-07-20 10:07] LABS: COVID AG,FIA SOURCE NASAL SWAB
[2025-07-20 10:28] LABS: SARS-COV2 (COVID) ANTIGEN,FIA Negative (Negative)
[2025-07-20 10:46] LABS: PH,URINE DRUG SCREEN 7.0 (5.0-8.0)
[2025-07-20] MEDS ORDERED: CALC-1085 PO (16:24)
[2025-07-20 19:56] VITALS: O2SAT 97
[2025-07-21 03:02] VITALS: BP 107/71; PULSE 68; RESP 16; TEMP 97.8
[2025-07-21] MEDS ORDERED: BENZOCAINE/MENTHOL [CEPACOL] LOZENGE PO PRN (08:15)
[2025-07-21] MEDS ORDERED: PETROLATUM,WHITE 28 GM JELLY TP PRN (08:15)
[2025-07-21] MEDS ORDERED: LOPERAMIDE HCL 2 MG CAPSULE PO PRN (08:15)
[2025-07-21] MEDS ORDERED: ONDANSETRON 4 MG TABLET PO PRN (08:15)
[2025-07-21] MEDS ORDERED: OMEPRAZOLE 20 MG CAPSULE PO PRN (08:15)
[2025-07-21] MEDS ORDERED: ACETAMINOPHEN 325 MG TABLET PO PRN (08:15)
[2025-07-21] MEDS ORDERED: DOCUSATE SODIUM 100 MG CAPSULE PO PRN (08:15)
[2025-07-21] MEDS ORDERED: IBUPROFEN 600 MG TABLET PO PRN (08:15)
[2025-07-21] MEDS ORDERED: MAG HYDROX/ALUMINUM HYD/SIMETH ES 30 ML SUSPENSION UDCUP PO PRN (08:15)
[2025-07-21] MEDS ORDERED: ALBUTEROL SULFATE HFA 90 MCG/PUFF 8 GM INHALER IH PRN (08:15)
[2025-07-21] MEDS ORDERED: BACITRACIN 28 GM OINTMENT TP PRN (08:15)
[2025-07-21] MEDS ORDERED: GLUCAGON,HUMAN RECOMBINANT 1 MG VIAL IM PRN (08:15)
[2025-07-21] MEDS ORDERED: MAGNESIUM HYDROXIDE SUSPENSION 30 ML UDCUP PO PRN (08:15)
[2025-07-21] MEDS ORDERED: MECLIZINE HCL 25 MG TABLET PO PRN (08:15)
[2025-07-21 08:28] VITALS: BP 104/68; PULSE 72; RESP 18; TEMP 98.2; O2SAT 98
[2025-07-21] MEDS: FLUTICASONE PROPIONATE 50 MCG/SPRAY 16 GM NASAL SPRAY NASAL SCH (09:00)
[2025-07-21] MEDS: POTASSIUM CHLORIDE 20 MEQ ER TABLET PO ONE (09:05)
[2025-07-21] MEDS: ASPIRIN 81 MG DR TABLET PO SCH (09:06)
[2025-07-21] MEDS: MULTIVITAMINS, THERAPEUTIC TABLET PO SCH (09:06)
[2025-07-21] MEDS: EMPAGLIFLOZIN 25 MG TABLET PO SCH (09:59)
[2025-07-21] MEDS: LOSARTAN POTASSIUM 25 MG TABLET PO SCH (10:00)
[2025-07-21 12:58] VITALS: BP 104/68; PULSE 72; RESP 18; TEMP 98.2
[2025-07-21] MEDS: INSULIN LISPRO 100 UNITS/ML SQ PRN (16:34)
[2025-07-21] MEDS: CALCIUM OYSTER SHELL 250 MG-VIT D3 125 UNITS[3.125MCG] TABLET PO SCH (16:55)
[2025-07-21 17:51] LABS: GLUCOMETER DEV NAME(LOC) BV2S.; GLUCOSE,POINT OF CARE 174 MG/DL (70-110)
[2025-07-21 20:13] VITALS: BP 123/83; PULSE 75; RESP 17; TEMP 97.7; O2SAT 95
[2025-07-21 21:45] LABS: GLUCOMETER DEV NAME(LOC) BV3S.2; GLUCOSE,POINT OF CARE 167 MG/DL (70-110)
[2025-07-21 23:25] VITALS: BP 123/83; PULSE 74; RESP 17; TEMP 97.7; O2SAT 96
[2025-07-22] MEDS: ALENDRONATE SODIUM 70 MG TABLET PO SCH (06:13)
[2025-07-22 06:41] LABS: GLUCOMETER DEV NAME(LOC) BV3S.2; GLUCOSE,POINT OF CARE 134 MG/DL (70-110)
[2025-07-22 08:10] LABS: PLATELET COUNT (AUTO) 350 K/uL (150-450); RED BLOOD CELL COUNT(AUTO) 4.60 MIL/uL (4.00-5.20); RED CELL DISTRIBUTION WIDTH 13.7 % (11.5-14.5); WHITE BLOOD COUNT (AUTO) 8.1 K/uL (4.5-11.0)
[2025-07-22 08:17] VITALS: RESP 16
[2025-07-22 08:38] LABS: ASPARTATE AMINOTRANSFERASE 22.0 U/L (15-37); CALCIUM, TOTAL 8.3 mg/dL (8.8-10.5); CHOL/HDL RATIO 3.7 (3.9-5.7); CREATININE 0.97 mg/dL (0.60-1.30); GLOMERULAR FILTR. RATE CALC 56.0 mL/min (>60); GLUCOSE,RANDOM 201.0 mg/dL (70-110); LDL CHOL (CALC.) 80.0 mg/dL (0-130); PHOSPHORUS 3.1 mg/dL (2.5-4.9); SODIUM SERUM 137.0 mmol/L (136-145); TOTAL PROTEIN, SERUM 7.9 g/dL (6.4-8.2); UREA NITROGEN, BLOOD 23.0 mg/dL (7-18)
[2025-07-22 09:30] VITALS: BP 127/84; PULSE 87; RESP 17; TEMP 97.3; O2SAT 98
[2025-07-22 11:16] LABS: GLUCOMETER DEV NAME(LOC) BV3S.2; GLUCOSE,POINT OF CARE 145 MG/DL (70-110)
[2025-07-22 17:10] LABS: GLUCOMETER DEV NAME(LOC) BV3S.2; GLUCOSE,POINT OF CARE 196 MG/DL (70-110)
[2025-07-22 19:56] LABS: GLUCOMETER DEV NAME(LOC) BV3S.2; GLUCOSE,POINT OF CARE 199 MG/DL (70-110)
[2025-07-22 20:27] VITALS: BP 131/82; PULSE 86; RESP 17; TEMP 97.3; O2SAT 98
[2025-07-22] MEDS: ZOLPIDEM TARTRATE 10 MG TABLET PO PRN (21:26)
[2025-07-23 06:26] LABS: GLUCOMETER DEV NAME(LOC) BV3S.2; GLUCOSE,POINT OF CARE 154 MG/DL (70-110)
[2025-07-23 08:21] VITALS: BP 137/76; PULSE 89; RESP 17; TEMP 96.6; O2SAT 99
[2025-07-23 11:46] LABS: GLUCOMETER DEV NAME(LOC) BV3S.2; GLUCOSE,POINT OF CARE 144 MG/DL (70-110)
[2025-07-23] MEDS ORDERED: BUSP5TAB20 PO (12:24)
== END 2025-07-23 11:50 | disposition home or self-care (01) | DRG 881 ==
LOC: EMS 08:35 → B3A 07-21 00:41
PROVIDERS: ADMIT Psychiatry & Neurology Psychiatry; ATTEND Psychiatry & Neurology Psychiatry
DX: F32.9 Major depressive disorder, single episode, unspecified (principal); N18.30 Chronic kidney disease, stage 3 unspecified; E11.22 Type 2 diabetes mellitus with diabetic chronic kidney disease; I12.9 Hypertensive chronic kidney disease with stage 1 through stage 4 chronic kidney disease, or unspecified chronic kidney disease; F41.9 Anxiety disorder, unspecified; G47.00 Insomnia, unspecified; K59.00 Constipation, unspecified; K21.9 Gastro-esophageal reflux disease without esophagitis; E11.40 Type 2 diabetes mellitus with diabetic neuropathy, unspecified; E78.00 Pure hypercholesterolemia, unspecified; M13.0 Polyarthritis, unspecified; M81.0 Age-related osteoporosis without current pathological fracture; Z20.822 Contact with and (suspected) exposure to COVID-19; Z87.442 Personal history of urinary calculi; Z90.13 Acquired absence of bilateral breasts and nipples
CPT/HCPCS: 80048; 80053; 80061; 80307; 81001; 82962; 83036; 83735; 84100; 84443; 85025; 87081; G0480

== ENCOUNTER 2025-07-29 06:55 | Emergency (ER) | payer OTHER ==
[~2025-07-29] VITALS: Ht 142.2 cm; Wt 51.8 kg
[~2025-07-29 06:55] MED LIST changes: -ACET-66 PO; -ALEN70TA65 PO; -AMLO10TA55 PO; -ASPI-1444 PO; +BUSP5TAB20 PO; -DULO20CA23 PO; -EMPA25TA3 PO; -FLUT16SP NASAL; -LINA5TAB PO; -LOSA-381 PO; -MECL-302 PO; -MULT-1336 PO; -QUET100T34 PO
[2025-07-29 06:58] VITALS: TEMP 97.7
[2025-07-29 07:30] VITALS: BP 114/67; PULSE 86; RESP 16; O2SAT 98
[2025-07-29 07:38] LABS: CALCIUM, TOTAL 8.9 mg/dL (8.8-10.5); CREATININE 0.98 mg/dL (0.60-1.30); GLOMERULAR FILTR. RATE CALC 55.0 mL/min (>60); GLUCOSE,RANDOM 153.0 mg/dL (70-110); SODIUM SERUM 140.0 mmol/L (136-145); UREA NITROGEN, BLOOD 17.0 mg/dL (7-18)
[2025-07-29 07:40] LABS: PLATELET COUNT (AUTO) 353 K/uL (150-450); RED BLOOD CELL COUNT(AUTO) 4.76 MIL/uL (4.00-5.20); RED CELL DISTRIBUTION WIDTH 13.5 % (11.5-14.5); WHITE BLOOD COUNT (AUTO) 7.1 K/uL (4.5-11.0)
[2025-07-29 07:55] LABS: APPEARANCE,URINE CLEAR (CLEAR); GLUCOSE, URINE (UA) >=1000 mg/dL (NEGATIVE); LEUKOCYTE ESTERASE ,URINE SMALL (NEGATIVE); NITRATE,URINE NEGATIVE (NEGATIVE); OCCULT BLOOD,URINE NEGATIVE (NEGATIVE); SPECIFIC GRAVITIY, URINE 1.021 (1.003-1.030)
[2025-07-29] MEDS ORDERED: CEPH-558 PO (08:25)
[2025-07-29] MEDS: CefTRIAXone SODIUM 1 GM/VIAL IM ONE (08:30)
[2025-07-29] MEDS: LIDOCAINE/PF 1% 2 ML VIAL IM ONE (08:42)
== END 2025-07-29 08:42 | disposition home or self-care (01) ==
LOC: EMS 06:55
DX: N39.0 Urinary tract infection, site not specified (principal); E11.40 Type 2 diabetes mellitus with diabetic neuropathy, unspecified; E78.00 Pure hypercholesterolemia, unspecified; I10 Essential (primary) hypertension; Z87.442 Personal history of urinary calculi; Z90.13 Acquired absence of bilateral breasts and nipples; Z79.899 Other long term (current) drug therapy
CPT/HCPCS: 99283; 80048; 81001; 85025; 36415; 96372; J0696; J3490

== ENCOUNTER 2025-08-03 07:52 | Emergency (ER) | payer OTHER ==
[~2025-08-03] VITALS: Ht 149.9 cm; Wt 59.1 kg
[~2025-08-03 07:52] MED LIST changes: +CEPH-558 PO
[2025-08-03 08:08] VITALS: TEMP 97.9
[2025-08-03] MEDS ORDERED: CALC-1085 PO (08:24)
[2025-08-03] MEDS ORDERED: QUET100T34 PO (08:24)
[2025-08-03] MEDS ORDERED: ALEN70TA65 PO (08:24)
[2025-08-03] MEDS ORDERED: AMLO10TA55 PO (08:24)
[2025-08-03] MEDS ORDERED: ATOR40TA71 PO (08:24)
[2025-08-03] MEDS ORDERED: MULT-1336 PO (08:24)
[2025-08-03] MEDS ORDERED: CEPH500C2 PO (08:24)
[2025-08-03 09:28] LABS: APPEARANCE,URINE CLEAR (CLEAR); GLUCOSE, URINE (UA) >=1000 mg/dL (NEGATIVE); LEUKOCYTE ESTERASE ,URINE SMALL (NEGATIVE); NITRATE,URINE NEGATIVE (NEGATIVE); OCCULT BLOOD,URINE NEGATIVE (NEGATIVE); SPECIFIC GRAVITIY, URINE 1.020 (1.003-1.030)
[2025-08-03 09:49] LABS: SQUAMOUS EPITHELIAL CELL,UR Few /LPF (None Seen)
[2025-08-03] MEDS: CefTRIAXone SODIUM 1 GM/VIAL IM ONE (10:41)
[2025-08-03] MEDS: LIDOCAINE/PF 1% 2 ML VIAL IM ONE (10:41)
[2025-08-03 10:45] VITALS: BP 129/77; PULSE 77; RESP 18; O2SAT 99
== END 2025-08-03 11:19 | disposition home or self-care (01) ==
LOC: EMS 07:55
DX: N39.0 Urinary tract infection, site not specified (principal); E11.22 Type 2 diabetes mellitus with diabetic chronic kidney disease; E11.40 Type 2 diabetes mellitus with diabetic neuropathy, unspecified; E78.00 Pure hypercholesterolemia, unspecified; F32.A Depression, unspecified; I12.9 Hypertensive chronic kidney disease with stage 1 through stage 4 chronic kidney disease, or unspecified chronic kidney disease; N18.30 Chronic kidney disease, stage 3 unspecified; Z87.442 Personal history of urinary calculi; Z90.13 Acquired absence of bilateral breasts and nipples; Z86.73 Personal history of transient ischemic attack (TIA), and cerebral infarction without residual deficits; Z79.899 Other long term (current) drug therapy
CPT/HCPCS: 99283; 81001; 82962; 87086; 96372; J0696; J3490

== ENCOUNTER 2025-08-16 11:57 | Emergency (ER) | payer OTHER ==
[~2025-08-16] VITALS: Ht 152.4 cm; Wt 54.1 kg
[~2025-08-16 11:57] MED LIST changes: +ALEN70TA65 PO; +AMLO10TA55 PO; +ATOR40TA71 PO; -BUSP5TAB20 PO; +CALC-1085 PO; -CEPH-558 PO; +CEPH500C2 PO; +MULT-1336 PO; +QUET100T34 PO
[2025-08-16 12:29] VITALS: BP 131/88; PULSE 76; RESP 16; TEMP 98.2; O2SAT 98
[2025-08-16 13:35] LABS: PLATELET COUNT (AUTO) 386 K/uL (150-450); RED BLOOD CELL COUNT(AUTO) 4.95 MIL/uL (4.00-5.20); RED CELL DISTRIBUTION WIDTH 13.5 % (11.5-14.5); WHITE BLOOD COUNT (AUTO) 6.9 K/uL (4.5-11.0)
[2025-08-16 13:53] LABS: CALCIUM, TOTAL 9.6 mg/dL (8.8-10.5); CREATININE 1.08 mg/dL (0.60-1.30); GLOMERULAR FILTR. RATE CALC 49.0 mL/min (>60); GLUCOSE,RANDOM 78.0 mg/dL (70-110); SODIUM SERUM 140.0 mmol/L (136-145); UREA NITROGEN, BLOOD 17.0 mg/dL (7-18)
[2025-08-16] MEDS ORDERED: HYDR-4808 PO (14:03)
[2025-08-16] MEDS ORDERED: FLUO-418 PO (14:04)
== END 2025-08-16 14:45 | disposition home or self-care (01) ==
LOC: EMS 11:57
DX: F32.A Depression, unspecified (principal); F41.9 Anxiety disorder, unspecified; E11.22 Type 2 diabetes mellitus with diabetic chronic kidney disease; E11.40 Type 2 diabetes mellitus with diabetic neuropathy, unspecified; E78.00 Pure hypercholesterolemia, unspecified; I12.9 Hypertensive chronic kidney disease with stage 1 through stage 4 chronic kidney disease, or unspecified chronic kidney disease; N18.30 Chronic kidney disease, stage 3 unspecified; Z87.442 Personal history of urinary calculi; Z90.13 Acquired absence of bilateral breasts and nipples; Z79.899 Other long term (current) drug therapy
CPT/HCPCS: 99284; 76700; 80048; 82962; 85025; 36415; G0480

== ENCOUNTER 2025-08-17 18:45 | Emergency (ER) | payer OTHER ==
[~2025-08-17] VITALS: Ht 142.2 cm; Wt 54.1 kg
[~2025-08-17 18:45] MED LIST changes: +FLUO-418 PO; +HYDR-4808 PO
[2025-08-17 18:52] VITALS: BP 132/71; PULSE 80; RESP 16; TEMP 98; O2SAT 98
== END 2025-08-17 22:43 | disposition left against medical advice (07) ==
LOC: EMS 19:29
DX: F32.A Depression, unspecified (principal); R73.9 Hyperglycemia, unspecified; Z53.21 Procedure and treatment not carried out due to patient leaving prior to being seen by health care provider
CPT/HCPCS: 82962; 99281; 99282